=== PATIENT | female | born 1975 | race Caucasian/White ===

== ENCOUNTER 2016-11-29 06:19 | Day surgery (SDC) | payer MEDICAID ==
[2016-11-26 09:40] LABS: HEMATOCRIT 43.4 % (36.0-48.0); MCH 29.9 pg (26.0-34.0); MCHC 32.3 g/dL (31.0-37.0); MCV 92.7 fL (80.0-100.0); MEAN PLATELET VOLUME 9.2 fL (7.4-10.4); RBC 4.68 10x6/uL (4.00-5.40); RDW 13.8 % (11.5-14.5); WBC 9.9 10x3/uL (4.8-10.8)
[2016-11-26 09:52] LABS: ANION GAP 12.6 mmol/L (8-16); CALCIUM 9.5 mg/dL (8.5-10.1); CARBON DIOXIDE 28.6 mmol/L (21.0-32.0); POTASSIUM - SERUM 4.2 mmol/L (3.5-5.1)
[~2016-11-29] VITALS: Ht 182.9 cm; Wt 153.3 kg
[~2016-11-29 06:19] MED LIST: ALDACTONE100 MG PO; COZAAR50 MG PO; CYMBALTA60 MG PO; FORTAMET1000 MG/BO PO; GLUCOPHAGE1000 MG PO; GLYCOLAX527 GM PO; HYDROCODONE-APA1 TAB PO; NEURONTIN 300300 MG PO; PROAIR HFA8.5 GM INH; PROMETRIUM200 MG PO; SINGULAIR10 MG PO; VICTOZA0.6 MG/0.1 SQ; VITAMIN D250000 UNIT PO; VYVANSE40 MG PO
[2016-11-29 07:07] LABS: HCG URINE NEGATIVE (NEGATIVE)
[2016-11-29 07:46] VITALS: BP 141/94; Ht 182.9 cm; Wt 153.3 kg
[2016-11-29] MEDS ORDERED: HYDROCODONE-APA1 TAB PO (09:39)
--- NOTE | 2016-11-29 11:50 | NUR ---
1150 SERVED FULL LIQUID DIET. Marcio CHI R.N.
--- NOTE | 2016-11-29 12:38 | NUR ---
1217 1 NORCO 10/325MG PO FOR PAIN. RANKS PAIN 03/05. Marcio CHI R.N.
--- NOTE | 2016-11-29 15:07 | NUR ---
1410 DRESSED, AWAKE & ALERT. GIVEN DISCAHRGE INSTRUCTIONS PACKET OF INFORMATION INCLUDING, MED REC., RX: NORCO 10/325MG, POST OP INSTRUCTION SHEET FOR ARTHROSCOPY OF THE KNEE, SHEET OF EXERCISES TO STRENGTHEN LEG. PT VOICED UNDERSTANDING. TO PRIVATE CAR PER WHEELCHAIR BY VOLUNTEER. HOME WITH FAMILY. Marcio CHI R.N.
--- NOTE | 2016-12-05 11:01 | OP ---
PATIENT NAME: ARELY CAT MEDICAL RECORD: [id number] :71 LOCATION:D.OPS ADMISSION DATE: SURGEON: PACO CURRY MD DATE OF OPERATION: 11/29/2016 PREOPERATIVE DIAGNOSIS: Patellofemoral syndrome. POSTOPERATIVE DIAGNOSIS: Patellofemoral syndrome plus lateral meniscus tear. PROCEDURE: 1. Arthroscopic partial lateral meniscectomy. 2. Arthroscopic lateral release of the right knee. SURGEON: Paco Curry MD. ANESTHESIA: General. INTRAOPERATIVE COMPLICATIONS: None. 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 OPERATIVE SUMMARY IN DETAIL: After obtaining the appropriate preoperative orthopedic surgery consent as well as anesthetic consultation, evaluation and clearance, the patient was brought to the operating room and placed on the operating table in supine position. After general laryngeal mask was administered, tourniquet was placed about the proximal aspect of the right lower extremity. Right lower extremity was then prepped and draped in routine sterile fashion. The leg was elevated and exsanguinated, tourniquet inflated to 350 mmHg. Inferolateral portal was established superomedial portal and inferomedial portal. Diagnostic arthroscopy did reveal the above findings. Arthroscopic resector and meniscotome were utilized to debride the lateral meniscus back to stable meniscal elements. Arthroscopy was then switched to the medial portal for direct visualization of the lateral retinaculum. The lateral retinaculum was serially and taken down to the subcutaneous fat using the [place] tissue ablation system. Having completed this, the knee was insufflated with 30 cc of 0.25% Marcaine with epinephrine and 80 mg of Depo-Medrol. Arthroscopy portals were closed in routine interrupted fashion using a 4-0 Prolene. Sterile dressings were applied. The patient was awakened, taken to recovery room in stable condition. All final needle and sponge counts were correct. 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
== END 2016-11-29 14:10 | disposition home or self-care (01) ==
LOC: D.OPS 06:19 → D.PAN 07:30 → D.OPS 08:30 → D.PAN 09:00 → D.OPS 09:15 → D.PAN 09:15 → D.OPS 14:10
PROVIDERS: Anesthesiology; Orthopaedic Surgery
DX: M22.2X1 Patellofemoral disorders, right knee (principal); S83.271A Complex tear of lateral meniscus, current injury, right knee, initial encounter

== ENCOUNTER 2017-02-18 10:53 | Day surgery (SDC) | payer MEDICAID ==
[~2017-02-18] VITALS: Ht 182.9 cm; Wt 154.5 kg
--- NOTE | ~2017-02-18 | PRO ---
PATIENT:ARELY CAT MEDICAL RECORD: [id number] : 71 LOCATION:D.OPS ADMISSION DATE: 02/18/17 PROCEDURE PERFORMED BY: JERARDO PURI MD DATE OF PROCEDURE: 02/18/2017 CREDIT REPORTER: Jerardo Puri M.D. PROCEDURE: EGD with biopsy. INDICATION: The patient is a 42-year-old black female with history of obesity, diabetes, bipolar disorder, hypertension, hypothyroidism, and chronic reflux who basically was referred for chronic reflux disease on high dose omeprazole 40 mg daily. She has never had an upper endoscopy what I can tell. She denies any weight loss or dysphagia. PREMEDICATION: Taper anesthesia. INSTRUMENT: Olympus video gastroscope. FINDINGS: The endoscope was passed through the oropharynx to the second portion of the duodenum without difficulty. The esophagus, stomach and duodenum were basically normal other than very small sliding hiatal hernia and scant gastritis. Biopsy obtained from the stomach to rule out H. pylori by means of histology. The patient tolerated the procedure well without any complications. IMPRESSION: 1. Scant gastritis status post biopsy. 2. Small sliding hiatal hernia. 3. Otherwise, normal EGD without any signs of active esophagitis, Patel esophagus, peptic ulcer disease, etc. There was no gastroparesis either. PLAN: 1. Follow up biopsy results. 2. Okay to continue her omeprazole, but she can probably decrease her dose down to 20 mg daily. 3. Reflux precautions. 4. Screening colonoscopy at age 48. TRANSINT:[id number] Voice Confirmation ID: [id number] DOCUMENT ID: [id number] JERARDO PURI MD CC: BRENTON EGAN MD [id number] DICTATION DATE: 02/18/17 1157 INFORMATION MANAGER: 02/19/17 0954 [facility] 02/18/17 [id number] [place] [address]
--- NOTE | ~2017-02-18 | HP ---
PATIENT: ARELY CAT MEDICAL RECORD: [id number] ACCOUNT: [id number] LOCATION:[facility] : 71 ADMISSION DATE: 02/18/17 HISTORY AND PHYSICAL EXAMINATION DATE: 02/18/2017 REFERRING PHYSICIAN: Dr. Jair Marroquin. HISTORY OF PRESENT ILLNESS: The patient is a 42-year-old black female with history of obesity, diabetes, hypertension, bipolar disorder, and reflux who basically was referred for evaluation of chronic reflux, requiring high dose omeprazole 40 mg daily. She denies any associated dysphagia or weight loss. She has never had an upper endoscopy from what I can tell. PAST MEDICAL HISTORY: As above. PAST SURGICAL HISTORY: Remarkable for partial hysterectomy and knee surgery. ALLERGIES: No known drug allergies. HOME MEDICATIONS: Include hydrocodone, vitamin D, Cymbalta, Aldactone, ProAir, Neurontin, Cozaar, Singulair, progesterone, metformin, Victoza and MiraLax for constipation and Synthroid. FAMILY HISTORY: Negative for GI diseases. SOCIAL HISTORY: The patient is a nonsmoker, nondrinker. REVIEW OF SYSTEMS: Noncontributory. PHYSICAL EXAMINATION: GENERAL: Reveals a middle-aged black female in no acute distress. VITAL SIGNS: Stable. She is afebrile. CHEST: Clear. HEART: Regular rate and rhythm. ABDOMEN: Soft, nontender. EXTREMITIES: No edema. IMPRESSION: 1. Chronic reflux on high dose, omeprazole, rule out large hiatal hernia, reflux esophagitis, Patel esophagus, etc. 2. History of obesity, diabetes, hypertension, peripheral neuropathy, bipolar disorder, and hypothyroidism. PLAN: 1. EGD. 2. Screening colonoscopy at age 48. 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
[2017-02-18 09:23] VITALS: BP 140/83; Ht 182.9 cm; Wt 154.5 kg
[2017-02-18 09:38] LABS: BASOPHILS 0.3 % (0-2); EOSINOPHILS 3.1 % (0-7); HEMATOCRIT 39.6 % (36.0-48.0); HEMOGLOBIN 12.8 g/dL (12-16); IMMATURE GRANULOCYTES 0.4 % (0-5); MCH 29.5 pg (26.0-34.0); MCHC 32.3 g/dL (31.0-37.0); MCV 91.2 fL (80.0-100.0); MEAN PLATELET VOLUME 9.4 fL (7.4-10.4); MONOCYTES 8.9 % (2-11); NEUTROPHILS 59.3 % (40-80); PLATELET COUNT 450 10x3/uL (130-400); RBC 4.34 10x6/uL (4.00-5.40); RDW 14.2 % (11.5-14.5); WBC 10.3 10x3/uL (4.8-10.8)
[2017-02-18 09:47] LABS: ANION GAP 8.4 mmol/L (8-16); CALCIUM 9.4 mg/dL (8.5-10.1); CARBON DIOXIDE 30.5 mmol/L (21.0-32.0); CREATININE - SERUM 0.9 mg/dL (0.6-1.3); POTASSIUM - SERUM 3.9 mmol/L (3.5-5.1)
--- NOTE | 2017-02-18 10:59 | NUR ---
[address] ART TO DO IV PT STUCK 3 TIMES.
--- NOTE | 2017-02-18 15:32 | NUR ---
1300 IV DC WITH CATHER TIP INTACT
== END 2017-02-18 13:30 | disposition home or self-care (01) ==
LOC: D.OPS 10:53
PROVIDERS: Anesthesiology
DX: K21.9 Gastro-esophageal reflux disease without esophagitis (principal); K29.70 Gastritis, unspecified, without bleeding; K44.9 Diaphragmatic hernia without obstruction or gangrene; E66.9 Obesity, unspecified; Z68.42 Body mass index [BMI] 45.0-49.9, adult; E11.9 Type 2 diabetes mellitus without complications; F31.9 Bipolar disorder, unspecified; I10 Essential (primary) hypertension; E03.9 Hypothyroidism, unspecified; G62.9 Polyneuropathy, unspecified; Z79.891 Long term (current) use of opiate analgesic; Z79.84 Long term (current) use of oral hypoglycemic drugs; Z79.899 Other long term (current) drug therapy

== ENCOUNTER → 2017-05-09 07:26 | Outpatient (CLI) | payer MEDICAID ==
[2017-02-18 09:23] VITALS: BMI 46.2
== END | disposition home or self-care (01) ==
LOC: D.NM 05-02 08:00
DX: R10.9 Unspecified abdominal pain (principal)

== ENCOUNTER 2017-10-26 13:22 | Emergency (ER) | payer MEDICAID ==
[2017-02-18 09:23] VITALS: BMI 46.2
== END 2017-10-26 15:00 | disposition home or self-care (01) ==
LOC: D.ER 13:22
DX: J06.9 Acute upper respiratory infection, unspecified (principal); J20.9 Acute bronchitis, unspecified

== ENCOUNTER → 2018-01-06 10:49 | Outpatient (CLI) | payer MEDICAID ==
[2017-02-18 09:23] VITALS: BMI 46.2
== END | disposition home or self-care (01) ==
LOC: D.MRI 10:49
DX: M25.562 Pain in left knee (principal)

== ENCOUNTER 2018-03-16 07:20 | Day surgery (SDC) | payer MEDICAID ==
[2018-03-15 09:08] LABS: HEMATOCRIT 38.6 % (36.0-48.0); HEMOGLOBIN 12.9 g/dL (12-16); MCH 30.5 pg (26.0-34.0); MCHC 33.4 g/dL (31.0-37.0); MCV 91.3 fL (80.0-100.0); RBC 4.23 10x6/uL (4.00-5.40); RDW 13.9 % (11.5-14.5); WBC 10.5 10x3/uL (4.8-10.8)
[2018-03-15 09:17] LABS: ANION GAP 9.9 mmol/L (8-16); CALCIUM 9.4 mg/dL (8.5-10.1); CARBON DIOXIDE 29.2 mmol/L (21.0-32.0); CREATININE - SERUM 1.1 mg/dL (0.6-1.3); POTASSIUM - SERUM 4.1 mmol/L (3.5-5.1)
[~2018-03-16] VITALS: Ht 172.7 cm; Wt 137.0 kg
--- NOTE | ~2018-03-16 | OP ---
PATIENT NAME: ARELY CAT MEDICAL RECORD: [id number] :71 LOCATION:D.OPS ADMISSION DATE: SURGEON: PACO CURRY MD DATE OF OPERATION: 03/16/2018 PREOPERATIVE DIAGNOSES: 1. Medial meniscus tear of the left knee. 2. Patellofemoral syndrome of the left knee. POSTOPERATIVE DIAGNOSES: 1. Medial meniscus tear of the left knee. 2. Patellofemoral syndrome of the left knee. PROCEDURES: 1. Arthroscopic partial medial meniscectomy of the left knee. 2. Arthroscopic lateral release of the left knee. SURGEON: Paco Curry MD ANESTHESIA: General. INTRAOPERATIVE COMPLICATIONS: None. SUMMARY OF PATHOLOGIC FINDINGS: The patient had a complex tear of the posterior horn of the medial meniscus along with a very tight lateral neck causing patellofemoral syndrome. OPERATIVE SUMMARY IN DETAIL: After obtaining the appropriate preoperative orthopedic surgery consent as well as anesthetic consultation, evaluation and clearance, the patient was brought to the operating room and placed on the operating table in supine position. After general laryngeal mask airway was administered, tourniquet was placed on the proximal aspect of the left lower extremity. Left lower extremity was then prepped and draped in routine sterile fashion. The leg was elevated and exsanguinated, tourniquet was inflated to 350 mmHg. Routine inferolateral portal was established followed by superior medial portal and inferomedial portal. Diagnostic arthroscopy revealed the above findings. Arthroscopic resector along with arthroscopic meniscotome was utilized to debride the medial meniscus back to stable meniscal elements. Having completed this, arthroscopic viewing portal was placed in the medial port for direct view of the lateral retinaculum. [place] hook tip tissue ablator was then utilized to release the lateral retinaculum from just below the vastus lateralis to the inferior lateral portal. Having completed this, arthroscopy portals were closed in routine interrupted fashion using 4-0 Prolene. The knee was insufflated with 30 cc of 0.25% Marcaine and 40 mg of Depo-Medrol. Sterile dressings were applied. Tourniquet was deflated. The patient was awakened, taken to recovery room in stable condition. All final needle and sponge counts were correct. 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
[~2018-03-16 07:20] MED LIST changes: +HYDROXYZINE HCL50 MG PO; +JANUVIA100 MG PO; +KLONOPIN1 MG PO; +LEVOTHYROXINE100 MCG PO; +NAPROSYN500 MG PO; +PEPCID40 MG PO; +ZANAFLEX4 MG PO
[2018-03-16 08:27] VITALS: BP 131/80; Ht 172.7 cm; Wt 137.0 kg
[2018-03-16] MEDS ORDERED: PERCOCET 10/3251 TA1 PO (10:33)
== END 2018-03-16 12:35 | disposition home or self-care (01) ==
LOC: D.OPS 07:20 → D.PAN 08:45 → D.OPS 08:45
PROVIDERS: Anesthesiology
DX: S83.232A Complex tear of medial meniscus, current injury, left knee, initial encounter (principal); M22.2X2 Patellofemoral disorders, left knee; Z01.812 Encounter for preprocedural laboratory examination

== ENCOUNTER 2018-04-24 16:36 | Emergency (ER) | payer BC ==
[~2018-04-24] VITALS: Ht 167.6 cm; Wt 140.2 kg
[~2018-04-24 16:36] MED LIST changes: +PERCOCET 10/3251 TA1 PO
[2018-04-24 16:41] VITALS: Ht 167.6 cm; Wt 140.2 kg
[2018-04-24 18:20] VITALS: BP 124/70
== END 2018-04-24 18:21 | disposition home or self-care (01) ==
LOC: D.ER 16:36
DX: K56.609 Unspecified intestinal obstruction, unspecified as to partial versus complete obstruction (principal); R10.32 Left lower quadrant pain; E11.9 Type 2 diabetes mellitus without complications; I10 Essential (primary) hypertension; K21.9 Gastro-esophageal reflux disease without esophagitis

== ENCOUNTER → 2018-05-11 15:41 | Outpatient (CLI) | payer MEDICAID ==
[2018-04-24 16:41] VITALS: BMI 46.0
[~2018-05-11 15:41] MED LIST changes: +CYCLOBENZAPRINE10 MG PO; +FLAGYL500 MG PO; +FLUTICASONE PRO16 GM NASAL; +JARDIANCE10 MG PO; +LINZESS145 MCG PO; +OMEPRAZOLE40 MG PO; +PROTONIX40 MG PO; +PROZAC20 MG PO
[2018-05-11 18:20] LABS: BASOPHILS 0.3 % (0-2); EOSINOPHILS 1.4 % (0-7); HEMATOCRIT 37.9 % (36.0-48.0); HEMOGLOBIN 12.5 g/dL (12-16); IMMATURE GRANULOCYTES 0.2 % (0-5); LYMPHOCYTES 28.1 % (15-50); MCH 30.4 pg (26.0-34.0); MCV 92.2 fL (80.0-100.0); MEAN PLATELET VOLUME 9.7 fL (7.4-10.4); MONOCYTES 7.6 % (2-11); NEUTROPHILS 62.4 % (40-80); PLATELET COUNT 505 10x3/uL (130-400); RBC 4.11 10x6/uL (4.00-5.40); WBC 9.8 10x3/uL (4.8-10.8)
[2018-05-11 19:38] LABS: ERYTHROCYTE SEDIMENTATION RATE 50 mm/hr (0-20)
== END | disposition home or self-care (01) ==
LOC: D.LABREF 15:41
PROVIDERS: Orthopaedic Surgery
DX: M25.562 Pain in left knee (principal)

== ENCOUNTER 2018-05-13 17:41 | Emergency (ER) | payer MEDICAID ==
[~2018-05-13] VITALS: Ht 167.6 cm; Wt 140.5 kg
[~2018-05-13 17:41] MED LIST changes: -CYCLOBENZAPRINE10 MG PO; -FLAGYL500 MG PO; -FLUTICASONE PRO16 GM NASAL; -JARDIANCE10 MG PO; -LINZESS145 MCG PO; -OMEPRAZOLE40 MG PO; -PROTONIX40 MG PO; -PROZAC20 MG PO
[2018-05-13 17:49] VITALS: Ht 167.6 cm; Wt 140.5 kg
[2018-05-13] MEDS ORDERED: SINGULAIR10 MG PO (18:02)
[2018-05-13] MEDS ORDERED: JARDIANCE10 MG PO (18:02)
[2018-05-13] MEDS ORDERED: OMEPRAZOLE40 MG PO (18:03)
[2018-05-13] MEDS ORDERED: CYMBALTA60 MG PO (18:03)
[2018-05-13] MEDS ORDERED: CYCLOBENZAPRINE10 MG PO (18:03)
[2018-05-13] MEDS ORDERED: FLUTICASONE PRO16 GM NASAL (18:04)
[2018-05-13] MEDS ORDERED: LINZESS145 MCG PO (18:05)
[2018-05-13] MEDS ORDERED: PROZAC20 MG PO (18:05)
[2018-05-13 19:04] LABS: APPEARANCE CLEAR (CLEAR); BILIRUBIN NEGATIVE (NEGATIVE); COLOR YELLOW (YELLOW); GLUCOSE 1000 mg/dL (NEGATIVE); KETONE NEGATIVE (NEGATIVE); NITRITE NEGATIVE (NEGATIVE); PROTEIN NEGATIVE (NEGATIVE); SPECIFIC GRAVITY 1.015 (1.005-1.020); UROBILINOGEN NORMAL (NORMAL)
[2018-05-13 19:05] LABS: WHITE CELLS - URINE 0-5 /hpf (0-5)
[2018-05-13 19:06] LABS: BACTERIA FEW /hpf (NONE SEEN); RED CELLS - URINE 0-5 /hpf (0-5)
[2018-05-13 19:15] LABS: BASOPHILS 0.4 % (0-2); EOSINOPHILS 2.2 % (0-7); HEMOGLOBIN 13.1 g/dL (12-16); IMMATURE GRANULOCYTES 0.2 % (0-5); LYMPHOCYTES 23.5 % (15-50); MCH 30.9 pg (26.0-34.0); MCHC 33.6 g/dL (31.0-37.0); MEAN PLATELET VOLUME 9.2 fL (7.4-10.4); MONOCYTES 8.7 % (2-11); PLATELET COUNT 473 10x3/uL (130-400); RBC 4.24 10x6/uL (4.00-5.40); RDW 13.9 % (11.5-14.5); WBC 9.4 10x3/uL (4.8-10.8)
[2018-05-13 19:30] LABS: ALBUMIN 3.2 g/dL (3.4-5.0); ALKALINE PHOSPHATASE 91 U/L (46-116); ALT (SGPT) 15 U/L (10-68); AMYLASE - SERUM 45 U/L (25-115); BILIRUBIN - TOTAL 0.23 mg/dL (0.2-1.3); CALC OSMOLALITY 281 mosm/kg (275-300); CALCIUM 8.5 mg/dL (8.5-10.1); CARBON DIOXIDE 30.4 mmol/L (21.0-32.0); CHLORIDE - SERUM 105 mmol/L (98-107); CREATININE - SERUM 0.8 mg/dL (0.6-1.3); GLUCOSE 99 mg/dL (74-106); LIPASE 137 U/L (73-393); POTASSIUM - SERUM 3.4 mmol/L (3.5-5.1); PROTEIN - SERUM 7.4 g/dL (6.4-8.2); SODIUM 142 mmol/L (136-145); UREA NITROGEN 9 mg/dL (7-18); eGFR NON AFRICAN AMERICAN 82 mL/min (90-120)
[2018-05-13] MEDS ORDERED: FLAGYL500 MG PO (20:53)
[2018-05-13] MEDS ORDERED: PROTONIX40 MG PO (20:53)
[2018-05-13 21:29] VITALS: BP 136/87
== END 2018-05-13 21:29 | disposition home or self-care (01) ==
LOC: D.ER 17:41
PROVIDERS: Family Medicine
DX: K80.50 Calculus of bile duct without cholangitis or cholecystitis without obstruction (principal); K59.09 Other constipation; K58.9 Irritable bowel syndrome, unspecified; E11.9 Type 2 diabetes mellitus without complications; I10 Essential (primary) hypertension; K21.9 Gastro-esophageal reflux disease without esophagitis

== ENCOUNTER → 2018-05-30 07:12 | Outpatient (CLI) | payer MEDICAID ==
[2018-05-13 17:49] VITALS: BMI 50.0
[~2018-05-30 07:12] MED LIST changes: +CYCLOBENZAPRINE10 MG PO; +FLAGYL500 MG PO; +FLUTICASONE PRO16 GM NASAL; +JARDIANCE10 MG PO; +LINZESS145 MCG PO; +OMEPRAZOLE40 MG PO; +PROTONIX40 MG PO; +PROZAC20 MG PO
== END | disposition home or self-care (01) ==
LOC: D.NM 07:12
DX: R11.0 Nausea (principal)